=== PATIENT | female | born 1980 | race Caucasian/White ===

== ENCOUNTER → 2021-04-26 | Outpatient (CLI) | payer OTHER ==
[~2021-04-26] MED LIST: ASPIRIN81 M1 PO; BIOTIN5 M2 PO; BUSPAR5 MG PO; CLARITIN10 M1 PO; GABAPENTIN600 MG PO; Motrin,Rufen800 MG PO; NEURONTIN400 MG PO; NURTEC ODT75 MG PO; PERCOCET 5-3251 EACH PO
== END | disposition home or self-care (01) ==
LOC: LAB 12:07
PROVIDERS: ATTEND Obstetrics & Gynecology
DX: Z11.52 Encounter for screening for COVID-19 (principal); N93.9 Abnormal uterine and vaginal bleeding, unspecified; Z20.822 Contact with and (suspected) exposure to COVID-19

== ENCOUNTER → 2021-04-30 | Day surgery (SDC) | payer OTHER ==
[~2021-04-30] VITALS: Ht 157.4 cm; Wt 63.5 kg
[2021-04-30 07:04] VITALS: BP 151/87
[2021-04-30 08:14] VITALS: BP 128/84
[2021-04-30 08:25] VITALS: BP 130/83
[2021-04-30 08:45] VITALS: BP 151/84
[2021-04-30 09:05] VITALS: BP 128/84
== END | disposition home or self-care (01) ==
LOC: SDC 04-26 12:30
PROVIDERS: ATTEND Obstetrics & Gynecology
DX: N93.9 Abnormal uterine and vaginal bleeding, unspecified (principal); F41.9 Anxiety disorder, unspecified; F32.9 Major depressive disorder, single episode, unspecified; G43.909 Migraine, unspecified, not intractable, without status migrainosus; G62.9 Polyneuropathy, unspecified; F17.210 Nicotine dependence, cigarettes, uncomplicated; Z98.890 Other specified postprocedural states; Z79.899 Other long term (current) drug therapy